=== PATIENT | male | born 1960 | race Caucasian/White ===

== ENCOUNTER 2022-06-26 08:34 | Inpatient (IN) | payer OTHER ==
[2022-06-22 16:15] LABS: BASOPHILS % (AUTO) 0.9 % (0-1); EOSINOPHILS # (AUTO) 0.1 X10'3 (0-0.9); EOSINOPHILS % (AUTO) 3.6 % (0-6); LYMPHOCYTES # (AUTO) 1.3 X10'3 (1.1-4.8); MEAN CORPUSCULAR HEMOGLOBIN 29.3 PG (27.0-31.0); MEAN CORPUSCULAR HGB CONC 33.2 g/dL (33.0-36.5); MEAN CORPUSCULAR VOLUME 88.2 FL (78-98); MEAN PLATELET VOLUME 8.8 FL (7.4-10.4); MONOCYTES # (AUTO) 0.6 X10'3 (0-0.9); MONOCYTES % (AUTO) 14.1 % (2-12); NEUTROPHILS # (AUTO) 1.9 X10'3 (1.8-7.7); NEUTROPHILS % (AUTO) 48.4 % (42-75); PRE OP HEMOGLOBIN 13.6 g/dL (14.0-17.9); PRE OP PLATELET COUNT 233 X10'3 (140-440); RED BLOOD COUNT 4.65 X10'6 (4.70-6.10); RED CELL DISTRIBUTION WIDTH 13.6 % (11.5-14.5)
[2022-06-22 16:22] LABS: ALBUMIN 4.4 G/DL (3.4-5.0); ALBUMIN/GLOBULIN RATIO 1.4 (1.1-1.5); ALKALINE PHOSPHATASE 54 IU/L (46-116); BLOOD UREA NITROGEN 18 MG/DL (7-18); BUN/CREATININE RATIO 19.6 (10.0-20.0); CALCIUM 9.3 MG/DL (8.5-10.1); CHLORIDE 102 MMOL/L (99-107); CREATININE 0.92 MG/DL (0.60-1.10); PRE OP ALT 41 U/L (30-65); PRE OP ANION GAP 6 (8-16); PRE OP AST 29 U/L (10-37); PRE OP BILIRUB, TOTAL 0.9 MG/DL (0.0-1.0); PRE OP GLUCOSE 90 MG/DL (70-104); PRE OP POTASSIUM 4.1 MMOL/L (3.4-5.1); PRE OP SODIUM 140 MMOL/L (135-145); TOTAL CARBON DIOXIDE 31.8 MMOL/L (24-32); TOTAL PROTEIN 7.6 G/DL (6.4-8.2); eGFR 84 ML/MIN
[~2022-06-26] VITALS: Ht 177.8 cm; Wt 95.1 kg
[2022-06-26] VITALS (19 sets, daily range): BP systolic 107–145; BP diastolic 66–96
[~2022-06-26 08:34] MED LIST: AMLO2.5T2 PO; ATOR40TA PO; DICL20GE TOP; LISI40TA13 PO; METH-797 PO; OMEG-5 PO; PANT-47 PO; SEMA1.7P SUBCUT; TRAM50TA2 PO; ZOLP10TA PO; cefazolin 2gm/D5W 100mL 100 ML IV ONE; famotidine 20mg tablet PO ONE; ringers solution, lacted 1,000 ML IV SCH; tranexamic acid 650mg tablet PO ONE; vancomycin 1,500 MG in NS 300ml IV soln IV ONE
--- NOTE | 2022-06-26 10:00 | NUR ---
PT STATES HE USED BACTROBAN AND SHOWERED W/HIBICLEANSE SOAP RECOMMENDED BY JOINT REPLACEMENT PROTOCOL FOR THE LAST 5 DAYS, STATES HE ALSO READ THE BOOKS AND PAMPHLETS FOR JOINT REPLACEMENT AND DECLINES ANY DECREASED SENSATION IN BILAT LE'S. Addendum: 06/26/22 at 1606 by Vicenta Min RN Amended: Links added.
[2022-06-26] MEDS ORDERED: BUPIVAcaine/PF 2.5 mg/ml (0.25%) 30ml vial ONE (11:57)
[2022-06-26] MEDS ORDERED: MIDAZolam 1mg/ml 10ml vial ONE (12:00)
[2022-06-26] MEDS ORDERED: fentaNYL/PF 50MCG/1 ML 2ML syringe ONE (12:00)
[2022-06-26] MEDS ORDERED: ondansetron/PF 4mg/2ml inj IV PRN ×2 (12:05→14:00)
[2022-06-26] MEDS ORDERED: meperidine/PF 25mg/ml syringe IV PRN ×3 (12:05)
[2022-06-26] MEDS ORDERED: ringers solution, lacted 1,000 ML IV SCH (12:05)
[2022-06-26] MEDS ORDERED: proCHLORperazine 10 MG/2 ml inj IV PRN (12:05)
[2022-06-26] MEDS ORDERED: morphine 2 MG/ML inj. syringe IV PRN (12:05)
[2022-06-26] MEDS ORDERED: morphine 4 MG/ML inj SYRINge IV PRN (12:05)
[2022-06-26] MEDS ORDERED: propofol inj 20 ML IV ONE (12:32)
[2022-06-26] MEDS ORDERED: ROPIVAcaine 0.5% (5mg/ml) 30ml vial ONE ×3 (12:48→13:37)
[2022-06-26] MEDS ORDERED: naloxone 0.4 mg/ml inj IV PRN (14:00)
[2022-06-26] MEDS ORDERED: magnesium hydroxide 30ml (MOM) UD suspension PO PRN (14:00)
[2022-06-26] MEDS: traMADol 50MG tablet PO SCH ×2 (14:00→20:30)
[2022-06-26] MEDS ORDERED: HYDROmorphone 1 mg/ml syringe IV PRN (14:00)
[2022-06-26] MEDS ORDERED: HYDROcodone/acetaminophen 10/325mg tab PO PRN ×2 (14:00)
[2022-06-26] MEDS ORDERED: diphenhydrAMINE 25mg capsule PO PRN ×2 (14:00)
[2022-06-26] MEDS ORDERED: acetaminophen 325mg tablet PO PRN (14:00)
[2022-06-26] MEDS ORDERED: oxyCODONE IR 5mg (immed. release) tablet PO PRN (14:00)
[2022-06-26] MEDS ORDERED: HYDROmorphone inj. 0.5 MG/0.5 ML DISP.SYRIN IV PRN (14:00)
[2022-06-26] MEDS ORDERED: bisacodyl 10mg suppository rectal RC PRN (14:00)
--- NOTE | 2022-06-26 14:05 | NUR ---
Received from OR via BED, accompanied by Anesthesiologist and report given by Anesthesiologist. PATIENT WAKING UP, NO S/S OF PAIN, V/S WNL, SCD ON, 20G TO LUE, drsg to RIGHT KNEE CDI AND F/C DRAINING CLEAR YELLOW URINE
--- NOTE | 2022-06-26 14:34 | NUR ---
Patient in room PAS IN 900. I have received report from selma lanier and had the opportunity to ask questions and assume patient care.
--- NOTE | 2022-06-26 15:15 | NUR ---
pATIENT A&OX4, DENIES PAIN, V/S WNL, SCD ON, 20G TO LUE, drsg to RIGHT KNEE CDI AND F/C DRAINING CLEAR YELLOW URINE. PATIENT TAKEN TO ROOM WITH ALL BELONGINGS AND HOOKED UP TO MONITORS IN ROOM AND GIVEN CALL LIGHT, REPORT GIVEN TO RN WHO HAS TAKEN OVER PATIENT CARE.
[2022-06-26] MEDS: potassium cl 20mEq in 1/2 NS 1,000 ML IV SCH ×2 (15:45→23:41)
[2022-06-26] MEDS ORDERED: cyclobenzaprine 10mg tablet PO PRN (16:00)
[2022-06-26] MEDS: ceFAZolin/D5W- 1GM premix 50 ML IV SCH ×2 (17:39→23:41)
[2022-06-26] MEDS: acetaminophen 325mg tablet PO SCH ×2 (17:40→20:33)
--- NOTE | 2022-06-26 17:45 | NUR ---
pt stated when pain is a 7 he will let me know and take pain meds.
--- NOTE | 2022-06-26 18:33 | NUR ---
Problems reprioritized. Patient report given, questions answered & plan of care reviewed with reynaldo lanier.
[2022-06-26] MEDS ORDERED: lisinopril 20mg tablet PO SCH (19:00)
[2022-06-26] MEDS ORDERED: vancomycin/NS 1 GM ADD-VANTAGE 250 ML IV SCH (20:00)
[2022-06-26] MEDS: cyclobenzaprine 10mg tablet PO SCH (20:29)
[2022-06-26] MEDS: OMEGA-3/DHA/EPA/FISH OIL 1 EACH CAPSULE.DR PO SCH (20:30)
[2022-06-26] MEDS: amLODIPine 5mg tablet PO SCH (20:31)
[2022-06-26] MEDS ORDERED: zolpidem 5mg tablet PO SCH (21:00)
[2022-06-26] MEDS ORDERED: atorvastatin 20mg tablet PO SCH (21:00)
[2022-06-26] MEDS ORDERED: sennosides 8.6mg tablet PO SCH (21:00)
[2022-06-26] MEDS: oxyCODONE IR 5mg (immed. release) tablet PO PRN (23:41)
[2022-06-27] MEDS: traMADol 50MG tablet PO SCH ×2 (02:00→09:16)
[2022-06-27] MEDS: acetaminophen 325mg tablet PO SCH ×2 (02:00→09:16)
[2022-06-27 02:11] VITALS: BP 132/89
--- NOTE | 2022-06-27 04:12 | NUR ---
Patient fast asleep when tylenol was due, he has trouble sleeping so I let him continue to sleep. Next dose due in 3.5 hours.
[2022-06-27] MEDS: oxyCODONE IR 5mg (immed. release) tablet PO PRN ×3 (04:35→14:20)
--- NOTE | 2022-06-27 04:40 | NUR ---
renetta vera'stephanie at 0440 am
[2022-06-27 06:00] VITALS: BP 124/79
[2022-06-27 06:27] LABS: BASOPHILS % (AUTO) 0.4 % (0-1); EOSINOPHILS # (AUTO) 0.1 X10'3 (0-0.9); HEMATOCRIT 36.1 % (42.0-52.0); HEMOGLOBIN 12.5 g/dl (14.0-17.9); LYMPHOCYTES % (AUTO) 19.5 % (21-51); MEAN CORPUSCULAR HEMOGLOBIN 30.1 PG (27.0-31.0); MEAN CORPUSCULAR HGB CONC 34.6 g/dL (33.0-36.5); MONOCYTES # (AUTO) 0.7 X10'3 (0-0.9); NEUTROPHILS # (AUTO) 3.3 X10'3 (1.8-7.7); NEUTROPHILS % (AUTO) 65.1 % (42-75); PLATELET COUNT 201 X10'3 (140-440); RED BLOOD COUNT 4.15 X10'6 (4.70-6.10); RED CELL DISTRIBUTION WIDTH 13.6 % (11.5-14.5); WHITE BLOOD COUNT 5.1 X10'3 (4.5-11.0)
--- NOTE | 2022-06-27 06:28 | NUR ---
Report given to Mirna PEPE, all questions answered at this time. Pt working with physical therapy at this time.
[2022-06-27 06:30] LABS: ANION GAP 8 (8-16); CHLORIDE 106 MMOL/L (99-107); POTASSIUM 3.9 MMOL/L (3.5-5.1); SODIUM 140 MMOL/L (135-145); TOTAL CARBON DIOXIDE 26.4 MMOL/L (24-32)
[2022-06-27] MEDS ORDERED: lisinopril 20mg tablet PO SCH (08:00)
[2022-06-27] MEDS ORDERED: pantoprazole 40mg Tablet.DR PO SCH (08:00)
[2022-06-27] MEDS ORDERED: amLODIPine 5mg tablet PO SCH (08:00)
[2022-06-27] MEDS ORDERED: aspirin 325mg tablet PO SCH (08:30)
[2022-06-27] MEDS: cyclobenzaprine 10mg tablet PO SCH (09:13)
[2022-06-27] MEDS: OMEGA-3/DHA/EPA/FISH OIL 1 EACH CAPSULE.DR PO SCH (09:13)
[2022-06-27] MEDS: amLODIPine 5mg tablet PO SCH (09:15)
[2022-06-27] MEDS: potassium cl 20mEq in 1/2 NS 1,000 ML IV SCH (09:20)
[2022-06-27 10:00] VITALS: BP 129/90
--- NOTE | 2022-06-27 11:01 | NUR ---
Joint surgery consult: Pt s/p R knee surgery this admit per EMR. Pt seen by PAMELA for written/verbal high protein diet ed w/ RD contact information provided. PAMELA encouraged pt to contact dietitian's office if further nutrition questions/concerns. Addendum: 06/27/22 at [address] Amended: Links added.
[2022-06-28] MEDS ORDERED: SEMAGLUTIDE SQ SCH (11:00)
[2022-06-28] MEDS ORDERED: acetaminophen 325mg tablet PO PRN (14:00)
== END 2022-06-27 14:27 | disposition home or self-care (01) | DRG 470 ==
LOC: UNDOADMIN 08:34 → PAS IN 08:34 → ORTHO 4S 16:36
PROVIDERS: ADMIT Orthopaedic Surgery; ATTEND Orthopaedic Surgery
PROC: 8E0YXBZ Computer Assisted Procedure of Lower Extremity (ICD-10-PCS; 2022-06-26)
PROC: 8E0Y0CZ Robotic Assisted Procedure of Lower Extremity, Open Approach (ICD-10-PCS; 2022-06-26)
PROC: 0SRC0J9 Replacement of Right Knee Joint with Synthetic Substitute, Cemented, Open Approach (ICD-10-PCS; principal; 2022-06-26 12:08)
DX: M17.11 Unilateral primary osteoarthritis, right knee (principal); Z79.899 Other long term (current) drug therapy
CPT/HCPCS: 36415; 80051; 80053; 82948; 85025; 87081; 97110; 97116; 97161; 97530; 97535; A4215; A7000; C1713; C1758; C1776; G0378; J0690; J2250; J2704; J2795; J3010; J3370; J3480; J3490; J7120